=== PATIENT | male | born 1975 | race Caucasian/White ===

== ENCOUNTER 2024-05-11 03:29 | Inpatient (IN) ==
[2024-05-11 04:03] LABS: ABS Basophils 0.1 10^3/uL (0.0-0.1); ABS Eosinophils 0.2 10^3/uL (0.0-0.5); ABS Lymphocytes 2.1 10^3/uL (1.0-4.8); ABS Neutrophils 4.5 10^3/uL (1.5-7.6); Eosinophil % 2.6 %; Hematocrit 47.7 % (38-53); Hemoglobin 16.6 g/dL (13.2-16.3); Lymphocyte % 26.4 %; Mean Corpuscular Hemoglobin 31.1 pg (27-33); Mean Corpuscular Hgb Conc 34.9 g/dL (31-36); Mean Platelet Volume 8.5 fL (7.5-11.2); Nucleated Red Blood Cells % 0.1 %/100WBC (0.0-0.8); Platelet Count 231 10^3/uL (150-450); Red Blood Count 5.35 10^6/uL (4.06-5.63); Red Cell Distribution Width 12.5 % (12-17); White Blood Count 7.8 10^3/uL (3.6-10.2)
[2024-05-11 04:20] LABS: INR 0.91 (0.83-1.13)
[2024-05-11 04:37] LABS: Albumin 4.5 g/dL (3.2-5.2); Albumin/Globulin Ratio 1.9 (1-3); Calcium 9.2 mg/dL (8.6-10.3); Creatinine, Serum 0.88 mg/dL (0.67-1.17); Globulin 2.4 g/dL (2-4); Potassium 3.8 mmol/L (3.5-5.0); Total Bilirubin 0.8 mg/dL (0.2-1.0); Total Protein 6.9 g/dL (6.4-8.9); eGFR CKD-EPI 105.4 (>60)
[2024-05-11 05:39] LABS: High Sensitivity Troponin 1 Hr 1624 pg/mL (<20)
[2024-05-11] MEDS: Heparin DRIP 25,000 UNITS BAG 25,000 UNITS/250 ML BAG IV SCH (05:58)
[2024-05-11] MEDS: Heparin 5000 UNITS/ML 1 mL VIAL IV SCH (05:58)
[2024-05-11] MEDS: Morphine 4 MG/ML VIAL (1 ml) IV ONE (06:07)
[2024-05-11 06:43] LABS: Creatinine, Serum 0.85 mg/dL (0.67-1.17); eGFR CKD-EPI 106.5 (>60)
[2024-05-11] MEDS: NS 0.9% 1000 ml BAG 1,000 ML IV SCH (10:03)
[2024-05-11] MEDS: Morphine 10 MG/ML VIAL (1 ml) IV ONE (11:20)
[2024-05-11] MEDS ORDERED: fentaNYL 100 mcg/2 ml 50 MCG/ML VIAL ONE ×2 (11:43→13:39)
[2024-05-11] MEDS ORDERED: Lidocaine 1% w EPI 1:100,000 MDV 20 ML VIAL ONE (11:43)
[2024-05-11] MEDS ORDERED: Midazolam 5 mg/5 ml VIAL 1 mg/ml 5 ml VIAL (5 mg) ONE ×2 (11:43→12:50)
[2024-05-11 12:22] LABS: High Sensitivity Troponin 3 Hr 9403 pg/mL (<20)
[2024-05-11] MEDS ORDERED: Naloxone 0.4 mg VIAL 0.4 mg/ml 1 ml VIAL IV PUSH PRN (12:43)
[2024-05-11] MEDS ORDERED: Flumazenil 0.5 mg/5 ml 0.1 MG/ML 5 ml VIAL IV PRN (12:43)
[2024-05-11] MEDS ORDERED: fentaNYL 250 mcg/5 ml 50 MCG/ML 5 ml VIAL (250 MCG) ONE (12:51)
[2024-05-11] MEDS ORDERED: Heparin 1,000 UNIT/ML 10 ml (10,000 UNITS) CATHLAB/DIALYSIS ONE ×2 (12:51→14:00)
[2024-05-11] MEDS ORDERED: niCARdipine 0.1MG/ML IVPREMIX 20 MG/200 ML BAG IV ONE (12:52)
[2024-05-11] MEDS ORDERED: Iohexol 350 (CONTRAST) 200 ML MDV IV ONE (12:52)
[2024-05-11] MEDS ORDERED: Heparin 2 UNITS/ML 1000 mls 2,000 ML IV ONE (12:52)
[2024-05-11] MEDS ORDERED: nitroGLYCERIN DRIP 25,000 MCG/250 ML BTL ONE (12:52)
[2024-05-11] MEDS ORDERED: Lidocaine 1% MPF 5 ML VIAL ONE (12:52)
[2024-05-11] MEDS ORDERED: Heparin 2 UNITS/ML 1000 mls 1,000 ML IV ONE (13:19)
[2024-05-11] MEDS ORDERED: Iohexol 350 (CONTRAST) 100 ML PAK IV ONE (14:00)
[2024-05-11] MEDS ORDERED: Prasugrel 10 mg TAB (NF) ONE (14:12)
[2024-05-11] MEDS ORDERED: Ondansetron 4 mg VIAL 2 MG/ML 2 ml VIAL IV PRN (14:31)
[2024-05-11] MEDS: fentaNYL 100 mcg/2 ml 50 MCG/ML VIAL IV SLOW PU ONE (15:11)
[2024-05-11] MEDS: Midazolam 10 mg/10 ml VIAL 1 mg/ml 10 ml VIAL (10 mg) IV SLOW PU ONE (15:12)
[2024-05-12 05:24] LABS: ABS Basophils 0.1 10^3/uL (0.0-0.1); ABS Eosinophils 0.2 10^3/uL (0.0-0.5); ABS Lymphocytes 1.8 10^3/uL (1.0-4.8); ABS Monocytes 1.2 10^3/uL (0.0-1.1); Eosinophil % 1.7 %; Hematocrit 44.9 % (38-53); Hemoglobin 15.5 g/dL (13.2-16.3); Lymphocyte % 19.6 %; Mean Corpuscular Hemoglobin 30.8 pg (27-33); Mean Corpuscular Hgb Conc 34.6 g/dL (31-36); Mean Corpuscular Volume 89.1 fL (80-97); Mean Platelet Volume 8.7 fL (7.5-11.2); Platelet Count 215 10^3/uL (150-450); Red Blood Count 5.04 10^6/uL (4.06-5.63); Red Cell Distribution Width 12.6 % (12-17); White Blood Count 9.2 10^3/uL (3.6-10.2)
[2024-05-12 06:18] LABS: Albumin/Globulin Ratio 1.7 (1-3); Creatinine, Serum 0.71 mg/dL (0.67-1.17); Globulin 2.4 g/dL (2-4); HDL Cholesterol 55.4 mg/dL; Potassium 4.2 mmol/L (3.5-5.0); Total Bilirubin 0.9 mg/dL (0.2-1.0); Total Protein 6.4 g/dL (6.4-8.9); eGFR CKD-EPI 112.5 (>60)
[2024-05-12] MEDS ORDERED: Sulfur Hexaflouride MICROSPHR 25 MG VIAL ONE ×2 (07:32→11:20)
[2024-05-12] MEDS: Prasugrel 10 mg TAB (NF) PO SCH (08:16)
[2024-05-12] MEDS: Sulfur Hexaflouride MICROSPHR 25 MG VIAL IV ONE (08:31)
[2024-05-13 05:34] LABS: ALT 25 U/L (7-52); Albumin/Globulin Ratio 1.6 (1-3); Alkaline Phosphatase 54 U/L (35-149); Anion Gap 8 mmol/L (2-16); Blood Urea Nitrogen 14 mg/dL (6-24); CO2 Carbon Dioxide 26 mmol/L (22-32); Chloride 104 mmol/L (101-111); Creatinine, Serum 0.89 mg/dL (0.67-1.17); Globulin 2.5 g/dL (2-4); Glucose 95 mg/dL (70-100); Sodium 138 mmol/L (135-145); Total Bilirubin 0.9 mg/dL (0.2-1.0); Total Protein 6.5 g/dL (6.4-8.9); eGFR CKD-EPI 105.1 (>60)
[2024-05-13 08:09] LABS: ABS Basophils 0.1 10^3/uL (0.0-0.1); ABS Eosinophils 0.1 10^3/uL (0.0-0.5); ABS Lymphocytes 1.4 10^3/uL (1.0-4.8); ABS Monocytes 1.1 10^3/uL (0.0-1.1); ABS Neutrophils 5.2 10^3/uL (1.5-7.6); Eosinophil % 1.8 %; Hematocrit 43.2 % (38-53); Hemoglobin 15.2 g/dL (13.2-16.3); Lymphocyte % 17.4 %; Mean Corpuscular Hemoglobin 31.6 pg (27-33); Mean Corpuscular Hgb Conc 35.2 g/dL (31-36); Mean Platelet Volume 8.7 fL (7.5-11.2); Platelet Count 202 10^3/uL (150-450); Red Cell Distribution Width 12.6 % (12-17); White Blood Count 7.9 10^3/uL (3.6-10.2)
[2024-05-13 13:30] VITALS: BP 117/88
== END 2024-05-13 13:01 | disposition home or self-care (01) | DRG 174 ==
LOC: EDHOLD 03:29 → ED 03:29 → AA 13:00 → SUATTDRO 14:52
PROVIDERS: ADMIT Internal Medicine; ATTEND Internal Medicine